=== PATIENT | female | born 1965 | race Hispanic/Latino ===

== ENCOUNTER 2022-11-10 15:00 | Emergency (ER) | payer MEDICAID ==
[~2022-11-10] VITALS: Ht 167.6 cm; Wt 114.3 kg
[~2022-11-10 15:00] MED LIST: HYDROCHLOROT25 MG PO; MELOXICAM7.5 MG PO
[2022-11-10 15:57] VITALS: BP 137/76
[2022-11-10 16:01] VITALS: BP 145/80
[2022-11-10] MEDS ORDERED: FUROSEMIDE20 MG PO (18:06)
[2022-11-10] MEDS ORDERED: METFORMIN HCL500 M1 PO (18:06)
[2022-11-10] MEDS ORDERED: LOSARTAN POTASS50 MG PO (18:07)
[2022-11-10] MEDS ORDERED: POTASSIUM CHLO10 ME1 PO (18:08)
[2022-11-10] MEDS ORDERED: LIPITOR20 M1 PO (18:09)
[2022-11-10] MEDS ORDERED: AMLODIPINE PO (18:09)
[2022-11-10] MEDS ORDERED: METOPROL TAR25 MG PO (18:10)
[2022-11-10 18:48] VITALS: BP 145/80
== END 2022-11-10 19:10 | disposition home or self-care (01) ==
LOC: ED 15:00
DX: M79.605 Pain in left leg (principal); R60.0 Localized edema; I10 Essential (primary) hypertension; E11.9 Type 2 diabetes mellitus without complications; F17.200 Nicotine dependence, unspecified, uncomplicated; Z79.84 Long term (current) use of oral hypoglycemic drugs